=== PATIENT | female | born 1955 | race African-American/Black ===

== ENCOUNTER 2019-04-24 12:30 | Outpatient (RCR) | payer OTHER | END 2019-04-26 | LOC: OT 12:30 | PROVIDERS: ATTEND Orthopaedic Surgery | DX: M20.021 Boutonniere deformity of right finger(s) (principal) ==

== ENCOUNTER → 2019-05-27 | Outpatient (RCR) | payer OTHER | LOC: OT 04-27 16:49 | PROVIDERS: ATTEND Orthopaedic Surgery | DX: M20.021 Boutonniere deformity of right finger(s) (principal) ==

== ENCOUNTER 2019-06-19 09:52 | Outpatient (RCR) | payer OTHER | END 2019-06-27 | LOC: OT 09:52 | PROVIDERS: ATTEND Orthopaedic Surgery | DX: M20.021 Boutonniere deformity of right finger(s) (principal); M25.641 Stiffness of right hand, not elsewhere classified ==

== ENCOUNTER → 2019-07-27 | Outpatient (RCR) | payer OTHER | LOC: OT 07-09 12:02 → PT 08:53 | PROVIDERS: ATTEND Psychiatry & Neurology Neurology | DX: M54.12 Radiculopathy, cervical region (principal) ==

== ENCOUNTER 2019-08-20 09:00 | Outpatient (RCR) | payer OTHER | END 2019-08-27 | LOC: OT 09:00 | PROVIDERS: ATTEND Orthopaedic Surgery | DX: M20.021 Boutonniere deformity of right finger(s) (principal); M25.641 Stiffness of right hand, not elsewhere classified; M54.12 Radiculopathy, cervical region | CPT/HCPCS: 97139 ==

== ENCOUNTER 2019-08-28 09:13 | Outpatient (RCR) | payer OTHER | END 2019-09-26 | LOC: OT 09:13 | PROVIDERS: ATTEND Psychiatry & Neurology Neurology | DX: M54.12 Radiculopathy, cervical region (principal); M62.81 Muscle weakness (generalized); M25.612 Stiffness of left shoulder, not elsewhere classified; M25.611 Stiffness of right shoulder, not elsewhere classified ==